=== PATIENT | female | born 1975 | race African-American/Black ===

== ENCOUNTER 2019-06-20 10:37 | Emergency (ER) | payer MEDICAID ==
[~2019-06-20] VITALS: Ht 160 cm; Wt 78.0 kg
[2019-06-20] MEDS ORDERED: ACETAMINOPHEN 325MG TABLET PO ONE (12:45)
[2019-06-20 14:39] VITALS: BP 148/81
== END 2019-06-20 14:49 | disposition home or self-care (01) ==
LOC: ER 10:37
DX: S40.021A Contusion of right upper arm, initial encounter (principal); F79 Unspecified intellectual disabilities; Z98.890 Other specified postprocedural states; W06.XXXA Fall from bed, initial encounter; Y93.89 Activity, other specified; Y92.89 Other specified places as the place of occurrence of the external cause; Y99.8 Other external cause status
CPT/HCPCS: 29125; 73070; 73110; 81025; 99283